=== PATIENT | male | born 1995 | race Caucasian/White ===

== ENCOUNTER 2019-04-25 20:34 | Emergency (ER) | payer OTHER ==
[~2019-04-25] VITALS: Ht 167.6 cm; Wt 54.4 kg
[~2019-04-25 20:34] MED LIST: ACETAMINOPHEN-1 EAC1 PO; CEPHALEXIN 500500 M3 PO; CIPROFLOXIN HC2.5 M1 OTIC
[2019-04-25 20:41] VITALS: BP 128/71
[2019-04-25] MEDS ORDERED: ONDANSETRON ODT4 MG PO (20:51)
== END 2019-04-25 21:19 | disposition home or self-care (01) ==
LOC: M.ERS 20:34
DX: R11.2 Nausea with vomiting, unspecified (principal)

== ENCOUNTER 2019-07-03 13:59 | Emergency (ER) | payer OTHER ==
[~2019-07-03] VITALS: Ht 167.6 cm; Wt 54.4 kg
[~2019-07-03 13:59] MED LIST changes: +ONDANSETRON ODT4 MG PO
[2019-07-03 14:29] LABS: INFLUENZA A ANTIGEN Negative (Negative); INFLUENZA B ANTIGEN Negative (Negative)
[2019-07-03] MEDS ORDERED: TYLENOL WITH CO1 TA1 PO (14:59)
[2019-07-03] MEDS ORDERED: CIPROFLOXIN HC2.5 M1 OTIC (14:59)
[2019-07-03] MEDS ORDERED: KEFLEX500 M1 PO (14:59)
[2019-07-03 15:10] VITALS: BP 139/78
== END 2019-07-03 15:12 | disposition home or self-care (01) ==
LOC: M.ERS 13:59
PROVIDERS: Nurse Practitioner Family
DX: H66.91 Otitis media, unspecified, right ear (principal); H60.91 Unspecified otitis externa, right ear